=== PATIENT | female | born 1990 | race Caucasian/White ===

== ENCOUNTER 2017-12-24 12:37 | Outpatient (CLI) | payer BC ==
[2017-12-24 13:22] LABS: ADD UMIC YES; UR ASCORBIC ACID NEGATIVE (NEGATIVE); UR BACTERIA FEW /HPF (NONE SEEN); UR BILIRUBIN (Dip) NEGATIVE (NEGATIVE); UR BLOOD (Dip) 3+ mg/dL (NEGATIVE); UR CLARITY SLIGHTLY CLOUDY (CLEAR); UR COLOR YELLOW (YELLOW); UR GLUCOSE (Dip) NEGATIVE (NEGATIVE); UR KETONES (Dip) NEGATIVE (NEGATIVE); UR LEUKOCYTE ESTERASE (Dip) 3+ Leu/ul (NEGATIVE); UR MUCUS MANY /HPF (NONE SEEN); UR NITRITE (Dip) NEGATIVE (NEGATIVE); UR RBC 20 /HPF (0-5); UR SPECIFIC GRAVITY (Dip) 1.024 (1.003-1.030); UR SQUAMOUS EPITHELIAL CELL FEW /HPF (FEW); UR TOTAL PROTEIN (Dip) 1+ mg/dl (NEGATIVE); UR UROBILINOGEN (Dip) NEGATIVE (NEGATIVE); UR WBC 50 /HPF (0-5)
== END 2017-12-24 14:36 | disposition home or self-care (01) ==
LOC: OBT 12:37 → L-D 12:37 → OBT 14:36
DX: O36.8130 Decreased fetal movements, third trimester, not applicable or unspecified (principal); Z3A.39 39 weeks gestation of pregnancy
CPT/HCPCS: 76818; 81001

== ENCOUNTER 2018-01-01 10:59 | Inpatient (IN) | payer BC ==
[2018-01-01] MEDS ORDERED: CARBOPROST 250 MCG INJ IM (12:30)
[2018-01-01] MEDS ORDERED: IBUPROFEN 600 MG TAB PO (12:30)
[2018-01-01] MEDS ORDERED: MISOPROSTOL 200 MCG TAB PR (12:30)
[2018-01-01] MEDS ORDERED: OXYTOCIN 30 UNITS/LR 500 ML IV ×2 (12:30)
[2018-01-01] MEDS ORDERED: LIDOCAINE 1% (MPF) 30 ML INJ INJ (12:30)
[2018-01-01] MEDS ORDERED: METHYLERGONOVINE 0.2 MG INJ IM (12:30)
[2018-01-01 12:56] LABS: ADD MAN DIFF? NO
[2018-01-01 13:00] LABS: WHITE BLOOD COUNT 11.5 10^3/ul (4.8-10.8)
[2018-01-01 13:01] LABS: BASOPHILS % 0.1 % (0.0-2.0); EOSINOPHILS % 0.2 % (0.0-7.0); HEMATOCRIT 34.1 % (37.0-47.0); HEMOGLOBIN 11.5 g/dl (12.0-16.0); LYMPHOCYTES # 1.3 10^3/ul (0.8-2.9); LYMPHOCYTES % 11.2 % (15.0-51.0); MEAN CORPUSCULAR HEMOGLOBIN 28.8 pg (29.0-33.0); MEAN CORPUSCULAR HGB CONC 33.7 g/dl (32.0-37.0); MEAN CORPUSCULAR VOLUME 85.5 fl (82.0-101.0); MEAN PLATELET VOLUME 10.9 fl (7.4-10.4); MONOCYTE # 0.7 10^3/ul (0.3-0.9); NEUTROPHIL # 9.5 10^3/ul (1.6-7.5); NEUTROPHILS % 82.2 % (39.0-77.0); PLATELET COUNT 219 10^3/UL (140-415); RED BLOOD COUNT 3.99 10^6/ul (4.20-5.40); RED CELL DISTRIBUTION WIDTH 15.9 % (11.5-14.5)
[2018-01-01] MEDS: LACTATED RINGER'S 1,000 ML IV* ×2 (13:18→17:53)
[2018-01-01 13:19] LABS: INR 0.84; PROTIME 11.6 Sec (11.9-14.9); PT RATIO 0.9
[2018-01-01 13:20] LABS: PARTIAL THROMBOPLASTIN TIME 31.5 Sec (23.0-35.0)
[2018-01-01] MEDS: BUTORPHANOL 2 MG INJ IV ×4 (13:35→17:17)
[2018-01-01] MEDS: MINERAL OIL LIGHT 10 ML VIAL TOP (17:30)
[2018-01-01] MEDS: LACTATED RINGER'S 1,000 ML IV (18:00)
[2018-01-01] MEDS ORDERED: ONDANSETRON 4 MG INJ IV ×2 (19:00→22:00)
[2018-01-01] MEDS ORDERED: NALOXONE (0.4 MG/ML) INJ IV (19:00)
[2018-01-01] MEDS ORDERED: DIPHENHYDRAMINE 50 MG INJ IV (19:00)
[2018-01-01] MEDS: FENTAnyl 2MCG/ML-ROPIV 0.2% 100 ML BAG EPI (19:21)
[2018-01-01] MEDS: OXYTOCIN 30 UNITS/LR 500 ML IV ×3 (19:23→21:44)
[2018-01-01] MEDS ORDERED: HYDROCODONE/APAP (5/325) TAB PO ×2 (22:00)
[2018-01-01] MEDS ORDERED: MAGNESIUM HYDROXIDE 30ML CUP PO (22:00)
[2018-01-01] MEDS ORDERED: NA PHOSPHATE/BIPHOS 133 ML ENEMA PR (22:00)
[2018-01-01] MEDS ORDERED: DIBUCAINE 1% 30 GM OINT TOP (22:00)
[2018-01-01] MEDS: SENNA/DOCUSATE NA (8.6MG/50MG) TAB PO (22:28)
[2018-01-01 22:30] LABS: RAPID PLASMA REAGIN NONREACTIVE (NR)
[2018-01-01] MEDS: IBUPROFEN 600 MG TAB PO (23:56)
[2018-01-01] MEDS: WITCH HAZEL/GLYCERIN PAD PR (23:57)
[2018-01-01] MEDS: LANOLIN 7 GM TUBE TOP (23:57)
[2018-01-01] MEDS: BENZOCAINE 20% 56 ML SPRAY TOP (23:57)
[2018-01-02] MEDS: IBUPROFEN 600 MG TAB PO ×4 (05:37→23:30)
[2018-01-02 08:19] LABS: ADD MAN DIFF? NO
[2018-01-02 08:25] LABS: BASOPHILS % 0.1 % (0.0-2.0); EOSINOPHILS % 0.1 % (0.0-7.0); HEMOGLOBIN 10.8 g/dl (12.0-16.0); LYMPHOCYTES # 1.5 10^3/ul (0.8-2.9); LYMPHOCYTES % 9.7 % (15.0-51.0); MEAN CORPUSCULAR HEMOGLOBIN 28.3 pg (29.0-33.0); MEAN CORPUSCULAR HGB CONC 32.7 g/dl (32.0-37.0); MEAN CORPUSCULAR VOLUME 86.6 fl (82.0-101.0); MEAN PLATELET VOLUME 10.9 fl (7.4-10.4); MONOCYTES % 6.6 % (0.0-11.0); NEUTROPHIL # 12.9 10^3/ul (1.6-7.5); PLATELET COUNT 191 10^3/UL (140-415); RED BLOOD COUNT 3.81 10^6/ul (4.20-5.40); RED CELL DISTRIBUTION WIDTH 16.1 % (11.5-14.5)
[2018-01-02 08:25] LABS: WHITE BLOOD COUNT 15.5 10^3/ul (4.8-10.8)
[2018-01-02] MEDS: SENNA/DOCUSATE NA (8.6MG/50MG) TAB PO ×3 (09:00→20:54)
[2018-01-02 09:17] LABS: HEPATITIS B SURFACE ANTIGEN NEGATIVE (NEGATIVE)
[2018-01-02] MEDS ORDERED: HYDROCODONE/APAP (5/325) TAB PO ×4 (20:00)
[2018-01-03] MEDS: IBUPROFEN 600 MG TAB PO ×2 (05:52→12:24)
[2018-01-03] MEDS ORDERED: MEASLES,MUMPS,RUBELLA VACCINE INJ SC* (09:00)
[2018-01-03] MEDS: SENNA/DOCUSATE NA (8.6MG/50MG) TAB PO (09:21)
[2018-01-03] MEDS ORDERED: DIPHTH/TET/ACEL PERTUSS (ADULT) 0.5 ML VIAL IM* (11:30)
[2018-01-03] MEDS: DIPHTH/TET/ACEL PERTUSS (ADULT) 0.5 ML VIAL IM* (12:25)
[2018-01-05] MEDS ORDERED: DIPHTH/TET/ACEL PERTUSS (ADULT) 0.5 ML VIAL IM* (12:00)
== END 2018-01-03 13:20 | disposition home or self-care (01) | DRG 807 ==
LOC: OBT 10:59 → L-D 10:59 → OBT 11:26 → L-D 11:24 → PP1 20:46
PROVIDERS: Obstetrics & Gynecology
PROC: 10E0XZZ Delivery of Products of Conception, External Approach (ICD-10-PCS; principal; 2018-01-01)
PROC: 0HQ9XZZ Repair Perineum Skin, External Approach (ICD-10-PCS; 2018-01-01)
PROC: 4A1HXCZ Monitoring of Products of Conception, Cardiac Rate, External Approach (ICD-10-PCS; 2018-01-01)
DX: O48.0 Post-term pregnancy (principal); Z37.0 Single live birth; O70.0 First degree perineal laceration during delivery; O69.81X0 Labor and delivery complicated by cord around neck, without compression, not applicable or unspecified; Z3A.40 40 weeks gestation of pregnancy
CPT/HCPCS: 62319; 76816; 85025; 85610; 85730; 86592; 86850; 86900; 86901; 87340; 90715; 99464